=== PATIENT | male | born 1995 ===

== ENCOUNTER 2017-06-06 14:02 | Emergency (ER) | payer BC, MEDICAID ==
[2017-06-06 14:29] VITALS: BP 108/70
[2017-06-06] MEDS ORDERED: Ketorolac INJ* 60 MG/2 ML VIAL IM ONE (14:40)
--- NOTE | 2017-06-06 15:45 | UC ---
UC General HPI - HPI Summary HPI Summary: FEVER, BODY ACHES, NAUEA AND VOMITING FOR TWO DAYS. HAS BEEN EXPOSED TO STREP AND MONO BOTH. NO ABDOMINAL PAIN. NO SORE THROAT. NO RASHES. - History of Current Complaint Chief Complaint: UCGeneralIllness Stated Complaint: CHILLS VOMITING Time Seen by Provider: 06/06/17 14:18 Hx Obtained From: Patient, Family/Sericulture Teacher Onset/Duration: Gradual Onset, Lasting Days, Still Present Onset Severity: Mild Current Severity: Mild Pain Intensity: 5 Associated Signs & Symptoms: Positive: Fever, Nausea, Vomiting. Negative: Abdominal Pain, Back Pain, Diarrhea, Dysuria, Edema, Melena, Palpitations, Syncope, SOB, Wheezing, Weakness - Allergy/Home Medications Allergies/Adverse Reactions: Allergies Allergy/AdvReac Type Severity Reaction Status Date / Time No Known Allergies Allergy Verified 06/06/17 14:28 PMH/Surg Hx/FS Hx/Imm Hx Previously Healthy: Yes - Surgical History Surgical History: None - Family History Known Family History: Negative: Diabetes - Social History Occupation: Employed Full-time Lives: With Family Alcohol Use: Occasionally Substance Use Type: None Smoking Status (MU): Never Smoked Tobacco Review of Systems Constitutional: Fever, Chills, Fatigue Skin: Negative Eyes: Negative ENT: Negative Respiratory: Negative Cardiovascular: Negative Gastrointestinal: Vomiting Genitourinary: Negative Motor: Negative Neurovascular: Negative Musculoskeletal: Myalgia Neurological: Negative Psychological: Negative All Other Systems Reviewed And Are Negative: Yes Physical Exam Triage Information Reviewed: Yes Appearance: No Pain Distress, Well-Nourished, Ill-Appearing - MILDLY Vital Signs: Initial Vital Signs Temp 100.2 F 06/06/17 14:24 Pulse 97 06/06/17 14:24 Resp 16 06/06/17 14:24 BP 108/70 06/06/17 14:24 Pulse Ox 97 06/06/17 14:24 Vital Signs Reviewed: Yes Eye Exam: Normal ENT: Positive: Hearing grossly normal, Pharyngeal erythema, TMs normal Dental Exam: Normal Neck exam: Normal Neck: Positive: Supple, Nontender, No Lymphadenopathy. Negative: Nuchal Rigidity, Tenderness @ Respiratory Exam: Normal Respiratory: Positive: Chest non-tender, Lungs clear, Normal breath sounds, No respiratory distress Cardiovascular Exam: Normal Cardiovascular: Positive: RRR, No Murmur, Pulses Normal Abdominal Exam: Normal Abdomen Description: Positive: Nontender, No Organomegaly, Soft Musculoskeletal Exam: Normal Musculoskeletal: Positive: Strength Intact, ROM Intact Neurological Exam: Normal Psychological Exam: Normal Skin Exam: Normal Course/Dx - Differential Dx - Multi-Symptom Differential Diagnoses: Metabolic Abnormality, Urinary Tract Infection Provider Diagnoses: FEBRILE ILLNESS; POSSIBLE MONONUCLEOSIS Discharge - Discharge Plan Condition: Stable Disposition: HOME Prescriptions: Ondansetron ODT TAB* [Zofran 4 MG Odt TAB*] 4 mg PO Q8H PRN #6 tab.odt PRN Reason: Vomiting Patient Education Materials: Mononucleosis (ED), Fever in Adults (ED) Referrals: David Steele MD [Primary Care Provider] -
[2017-06-06 18:43] LABS: EBV Response YES
[2017-06-06 18:51] LABS: Hematocrit 49 % (42-52); Hemoglobin 16.3 g/dl (14.0-18.0); Mean Corpuscular HGB Conc 33 g/dl (31-36); Mean Corpuscular Hemoglobin 30 pg (27-31); Mean Corpuscular Volume 90 fL (80-94); Mean Platelet Volume 9 um3 (7.4-10.4); Red Cell Distribution Width 13 % (10.5-15); White Blood Count 16.7 10^3/ul (3.5-10.8)
[2017-06-06 19:39] LABS: Mono Internal Control QC Line Present
--- NOTE | 2017-06-07 07:51 | ED ---
Progress - Progress Note Progress Note: cbc normal. Course/Dx - Diagnoses Provider Diagnoses: Dizziness
--- NOTE | 2017-06-07 07:52 | ED ---
Progress - Progress Note Progress Note: cbc normal. Course/Dx - Diagnoses Provider Diagnoses: Dizziness
--- NOTE | 2017-06-07 09:02 | ED ---
Progress - Progress Note Progress Note: cbc - wbc 16 and mono (-). see how patient doing. Course/Dx - Diagnoses Provider Diagnoses: Dizziness
[2017-06-08 12:56] LABS: EBV Capsid Ag IgG Ab Positive (Negative); EBV Capsid Ag IgM Ab Negative (Negative)
== END 2017-06-06 15:23 | disposition home or self-care (01) ==
LOC: UCCORT 14:02
DX: R50.9 Fever, unspecified (principal); M79.1 Myalgia; R11.2 Nausea with vomiting, unspecified; R53.83 Other fatigue
CPT/HCPCS: 36415; 81003; 85025; 86308; 86664; 86665; 87651; 99202; G0463; J1885